=== PATIENT | male | born 1980 | race Caucasian/White ===

== ENCOUNTER 2018-02-28 16:51 | Emergency (ER) | payer SELFPAY ==
[2018-02-28 16:53] VITALS: BP 129/69; PULSE 110; RESP 16; TEMP 36.7; O2SAT 97; BMI 32.6
--- NOTE | 2018-02-28 17:06 | RAD_ITS ---
STUDY: X-RAY CHEST REASON FOR EXAM: Male, 38 years old. Irregular heartbeat. TECHNIQUE: Single AP portable view of the chest. COMPARISON: None. FINDINGS: The lungs are clear and expanded. There is no demonstrated pleural abnormality. Normal size heart. Normal mediastinum and clara. Normal visualized pulmonary arteries. Normal visualized aortic arch and descending thoracic aorta. Normal visualized thoracic spine. Normal visualized ribs, clavicles, and shoulders. There is no demonstrated abnormality of the visualized soft tissue structures of the upper abdomen. RAD/Chest 1 View (Portable) IMPRESSION: Normal x-ray examination of the chest. Electronically Signed: Julito Bernardo MD at 17:21 EDT , Service support ,
--- NOTE | 2018-02-28 17:06 | EKG12_ITS ---
Test Reason : IRREGULAR RHYTHM Blood Pressure : / mmHG Vent. Rate : 086 BPM Atrial Rate : 086 BPM P-R Int : 126 ms QRS Dur : 092 ms QT Int : 354 ms P-R-T Axes : 069 069 031 degrees QTc Int : 423 ms Sinus rhythm with Premature atrial complexes Otherwise normal ECG Confirmed by ZENAIDA ANDREW, MANNY ([id number]), editor & co founder LENORE ELDER ([id number]) on 03/03/2018 2:45:27 PM Referred By: FRANCISCO J Confirmed By:MANNY ESTEVEZ MD
[2018-02-28] MEDS: Aspirin 81 MG TAB.CHEW 324 MG PO (17:18)
[2018-02-28 17:45] LABS: Absolute Lymphocyte Count 1.43 X10^3/ul (0.83-4.51); Basophil# 0.02 X10^3/uL; Basophil% 0.2 % (0-1); Eosinophil# 0.06 X10^3/uL; Eosinophils% 0.7 % (0-5); Hematocrit 39.2 % (40-54); Hemoglobin 13.3 g/dl (13.0-16.5); Lymphocyte # 1.43 X10^3/ul (4.0); Lymphocyte % 16.8 % (19-41); Mean Corp Hgb Conc 33.9 g/gl (32-36); Mean Corpuscular Hgb 31.6 pg (27.0-32.0); Mean Corpuscular Volume 93.1 fL (80-94); Mean Platelet Vol. 8.8 fl (6.2-12.0); Monocyte# 0.93 X10^3/uL; Neutrophil # 6.04 X10^3/uL (2.7-7.7); Neutrophil % 71.2 % (47-70); Platelet Count 204 K/mm3 (150-450); RBC Distribution Width CV 13.1 % (11.6-14.6); RBC Distribution Width SD 44.8 fl (35.1-43.9); Red Blood Count 4.21 M/mm3 (4.6-6.2); White Blood Count 8.5 K/mm3 (4.4-11.0)
[2018-02-28 17:53] LABS: POSITIVE COUNT NO; POSITIVE DIFFERENTIAL NO; POSITIVE MORPHOLOGY NO
[2018-02-28 18:04] LABS: Anion Gap 5 (5-15); BUN 13 mg/dL (7-18); BUN/Creat Ratio 13.8 RATIO (10-20); Calcium,Total 8.9 mg/dL (8.5-10.1); Chloride 104 mmol/L (98-107); Creatinine, Serum 0.94 mg/dL (0.70-1.30); EST Glomerular Filtration Rate 94 mL/min (>60); Est Glom Filt Rate - Afr Amer 114 mL/min (>60); Estimated Creatinine Clearance 104.46 ml/min; Glucose 107 mg/dL (74-106); Potassium 3.4 mmol/L (3.5-5.1); Sodium Level 138 mmol/L (136-145)
--- NOTE | 2018-02-28 18:11 | ED.VISSUMM ---
- ER Visit Summary Date of Service: 02/28/18 Chief Complaint: Irregular heartbeat History of Present Illness: The patient is a 38 M who has been complaining of URI like symptoms over the past couple of days. [facility] noticed an irregular heart rate so they sent him here. He has had sinus congestion, dizziness and chills. He has also had a slight cough. He denies any fevers. He does not feel palpitations. He is never had anything like this before. Denies any chest pain Physical Examination: Vital signs reviewed. HEENT exam unremarkable. Heart is irregular without murmurs. Lungs are clear to auscultation. Abdomen is soft and nontender. Extremities reveal no edema. Skin exam normal. Neurologic exam normal. Test Results: EKG is sinus rhythm with multiple PACs. Chest x-ray normal. Labs unremarkable Emergency Department Course and Treatment: Patient has a viral URI and will be treated with Mucinex as well as Flonase. This irregular heartbeat is caused by PACs. He does not feel them. He is going to mention this to his primary doctor and I am not going to start him on any medications for this Treatment Plan: [] Disposition: Discharge Impression: URI, premature atrial contractions This note was generated with Pipeline dictation software. It may contain incorrect words, spelling, and punctuation that were not noted in review of the chart prior to signing ED Disposition - Plan for ED Patient: Chief Complaint: Cold Sx Referrals: Yassine Sims DO [Primary Care Provider] -
--- NOTE | 2018-02-28 18:14 | DCINST.ED_ITS ---
ED Disposition - Plan for ED Patient: Disposition: Home or Assisted Living Chief Complaint: Cold Sx Instructions: ED Upper Resp Infec No Abx Tx Prescriptions: Fluticasone 0.05% [Flonase Nasal [place]] 1 spray NASAL BID #1 bottle Guaifenesin [Mucinex] 600 mg PO BID #14 [id number] Referrals: Yassine Sims DO [Primary Care Provider] -
[2018-02-28 18:35] VITALS: BP 113/71; PULSE 75; RESP 21; O2SAT 96
== END 2018-02-28 18:36 | disposition home or self-care (01) ==
PROVIDERS: Emergency Provider Emergency Medicine; Family Provider Family Medicine; PCP Family Medicine
DX: I49.1 Atrial premature depolarization (principal); J06.9 Acute upper respiratory infection, unspecified; Z72.0 Tobacco use
CPT/HCPCS: 71045; 80048; 84484; 85025; 93005; 99284

== ENCOUNTER 2024-11-25 16:03 | Emergency (ER) | payer OTHER, SELFPAY ==
[2024-11-25 16:04] VITALS: BP 126/91; PULSE 93; RESP 16; TEMP 36.9; O2SAT 99; BMI 30.9
--- NOTE | 2024-11-25 17:55 | RAD_ITS ---
PROCEDURE: CHEST 1 VIEW (PORTABLE) REASON FOR EXAM: 44-year-old male, cough. TECHNIQUE: Frontal view of the chest. COMPARISON: Chest radiograph 02/28/2018. FINDINGS: The heart size is normal. The lungs are clear. No focal consolidation, pleural effusion or pneumothorax. The bones are unremarkable. RAD/Chest 1 View (Portable) IMPRESSION: NEGATIVE CHEST. Reading Location: [id number]
[2024-11-25 17:56] LABS: Absolute Lymphocyte Count 0.98 X10^3/uL (0.83-4.51); Absolute Neutrophil Count 5.5 X10^3/uL (2.0-7.7); Basophil# 0.03 X10^3/uL; Basophil% 0.4 % (0-1); Hemoglobin 15.7 g/dL (13.0-16.5); Lymphocyte # 0.98 X10^3/ul (0.83-4.51); Lymphocyte % 13.1 % (19-41); Mean Corp Hgb Conc 34.9 g/dL (32-36); Mean Corpuscular Hgb 33.1 pg (27.0-32.0); Mean Corpuscular Volume 94.7 fL (80-94); Mean Platelet Vol. 8.4 fl (6.2-12.0); Monocyte# 0.93 X10^3/uL; Monocyte% 12.4 % (0-10); NRBC Flagged by Analyzer 0 % (0-5); Neutrophil # 5.53 X10^3/uL (2.7-7.7); Neutrophil % 73.7 % (47-70); Platelet Count 181 K/mm3 (150-450); RBC Distribution Width SD 45.1 fl (35.1-43.9); Red Blood Count 4.75 M/mm3 (4.6-6.2); White Blood Count 7.5 K/mm3 (4.4-11.0)
[2024-11-25 18:12] LABS: Anion Gap 9 (5-15); BUN 24 mg/dL (7-18); BUN/Creat Ratio 20.5 RATIO (10-20); Calcium,Total 9.4 mg/dL (8.5-10.1); Chloride 100 mmol/L (98-107); Creatinine, Serum 1.17 mg/dL (0.70-1.30); EST Glomerular Filtration Rate 71 mL/min (>60); Est Glom Filt Rate - Afr Amer 86 mL/min (>60); Estimated Creatinine Clearance 98.11 ml/min; Glucose 103 mg/dL (74-106); Potassium 3.9 mmol/L (3.5-5.1); Sodium Level 133 mmol/L (136-145)
--- NOTE | 2024-11-25 18:49 | EX.ED.DYSGE1 ---
HPI History of Present Illness Chief Complaint: General Illness Detail of Chief Complaint: Systemic viral symptoms Informant: patient Onset/Context/Timing Onset: Days (Onset 2 days ago) Context: Sudden Onset Timing: Continuous and Waxes and wanes Quality: Achy all over Location: Generalized with respiratory and GI symptoms Current Severity: Moderate Maximum Severity: Severe Worsened by: Nothing Relieved by: Nothing Associated Symptoms Associated Symptoms: Detailed HPI narrative Narrative Narrative: Patient is a 44-year-old male he has no significant past medical history. He presents with viral type symptoms started 2 days ago. He endorses rhinorrhea, congestion, postnasal drainage sore throat. He has a cough that is nonproductive. He complains of abdominal pain with nausea and diarrhea. He denies hematochezia or black stool. He denies mucus in his diarrhea. He has not been on antibiotic in the past month. He does not drink well water and his had no ill contacts to his knowledge. He has not taken anything for the pain. He states he has not felt this bad in years. He does endorse mild headache. [place] photophobia, neck pain or neck stiffness. He denies ear pain. He denies chest pain. He denies shortness of breath. He denies wheezing. He is a smoker. He denies dysuria, frequency, urgency or hematuria. He endorses decreased urine output. He denies any skin lesions or joint swelling. Recent Illness/Hospitalization: No PFSH [facility] Medical History Cough Home Medications ?Medication ?Instructions ?Recorded ?Last Taken ?Type fluticasone propionate 50 1 spray NASAL BID ##1 02/28/18 Unknown Rx mcg/actuation nasal spray,suspension guaifenesin 600 mg tablet, 600 mg PO BID ##14 02/28/18 Unknown Rx extended release 12 hr hydrocodone-homatropine 5 mg-1.5 5 ml PO Q6H PRN cough 3 days #60 mL 11/26/24 Unknown Rx mg/5 mL (5 mL) oral syrup (Hycodan) Allergy/AdvReac Type Severity Reaction Status Date / Time No Known Allergies Allergy Verified 11/25/24 16:05 Social History Smoking Status: Current every day smoker tobacco type: cigarettes ROS ROS ED Constitutional Constitutional ED: Reports chills, fever(s), subjective and sweats; Denies weight loss Eyes Eyes: Denies blurry vision, change in vision or diplopia ENT ENT ED: Denies ear pain, rhinorrhea or sore throat Cardiovascular Cardiovascular: Reports chest pain; Denies orthopnea, palpitations, paroxysmal nocturnal dyspnea or racing heartbeat Respiratory/Chest Respiratory/Chest: Reports cough and dyspnea; Denies dyspnea on exertion, orthopnea, paroxysmal nocturnal dyspnea or sputum Gastrointestinal Gastrointestinal: Reports abdominal pain, diarrhea and nausea; Denies melena or vomiting Genitourinary Genitourinary ED: Reports other Details: Decreased urine output ; Denies dysuria, hematuria or urinary frequency Musculoskeletal Musculoskeletal: Denies arthralgias or myalgias Integumentary Denies rash Neurologic Neurologic: Reports headache(s) and weakness; Denies paresthesias Endocrine Endocrinology: Denies cold intolerance or heat intolerance Hematologic/Lymphatic Hematologic/Lymphatic: Reports systems reviewed and no addt'l complaints, except as documented EXAM Physical Exam Const Vital Signs: 11/25/24 16:04 11/25/24 18:50 11/25/24 20:00 Temperature 98.4 F Temperature Source Oral Pulse Rate 93 Respiratory Rate 16 18 Respiratory Effort Normal Non-Labored Respiratory Pattern Normal Blood Pressure 126/91 H Blood Pressure Mean 102 Pulse Ox 99 Oxygen Delivery Method Room Air 11/25/24 22:00 Temperature Temperature Source Pulse Rate 90 Respiratory Rate 18 Respiratory Effort Respiratory Pattern Blood Pressure 118/90 H Blood Pressure Mean 99 Pulse Ox 98 Oxygen Delivery Method Room Air Positive well nourished and well developed General Appearance ED: well developed; Negative for cyanotic, diaphoretic, NAD or pallor HEENT Reports dry mucous membranes HEENT Narrative: Head is atraumatic normocephalic. Ears normal. Nares patent. Posterior pharynx is normal. Mouth ED: Yes dry mucous membranes Mouth: dry mucous membranes Eyes PERRL and EOMs intact bilaterally General Eye ED: Negative for pale conjunctiva or scleral icterus Neck no lymphadenopathy, supple and no JVD Chest Wall inspection of chest normal and palpation of chest normal Resp normal respiratory effort and clear to auscultation bilaterally Cardio regular rate, regular rhythm, S1 normal heart sound, S2 normal heart sound and no murmurs GI normal to inspection, nondistended, normoactive bowel sounds, non-distended and no masses; Negative for non-tender or hepatosplenomegaly Palpation: soft and tender epigastric; Negative for guarding, splenomegaly or rebound tenderness present Back/Spine no CVA tenderness Extremity normal to inspection General Extremety ED: Negative for edema or tenderness General Extremity: Negative for edema Neuro oriented x3 and CN's II-XII intact bilaterally Sensorium / Orientation: alert Psych mental status grossly normal Skin no rashes or lesions noted, no wounds and skin turgor normal General Skin Exam: Negative for jaundice or pallor MDM MDM MDM Narrative Medical decision making narrative: Patient with systemic viral symptoms. Will obtain chest x-ray to rule out pneumonia. Rapid antigen for COVID, influenza and RSV, CBC to assess H&H and white count with differential, electrolyte panel to assess renal function and CO2 anion gap. Since patient clinically appears dehydrated 1 L normal saline was ordered. He was administered Zofran for his nausea Imodium for his diarrhea and Bentyl for his cramping pain. Will reassess in 30 to 60 minutes Lab Data Attestation: I reviewed the patient's lab results. Lab results narrative: CBC is unremarkable. Basic metabolic panel is unremarkable Labs: Laboratory Results - last 24 hr 11/25/24 17:47 WBC 7.5 RBC 4.75 Hgb 15.7 Hct 45.0 MCV 94.7 H MCH 33.1 H MCHC 34.9 RDW Std Deviation 45.1 H RDW Coeff of Vitor 13.0 Plt Count 181 MPV 8.4 Immature Gran % (Auto) 0.400 Neut % (Auto) 73.7 H Lymph % (Auto) 13.1 L Harlan % (Auto) 12.4 H Eos % (Auto) 0.0 Baso % (Auto) 0.4 Absolute Neuts (auto) 5.5 Absolute Lymphs (auto) 0.98 Nucleated RBC % 0 Sodium 133 L Potassium 3.9 Chloride 100 Carbon Dioxide 24.0 Anion Gap 9 BUN 24 H Creatinine 1.17 Estim Creat Clear Calc 98.11 Est GFR (MDRD) Af Amer 86 Est GFR (MDRD) Non-Af 71 BUN/Creatinine Ratio 20.5 H Glucose 103 Calcium 9.4 Radiography Chest X-Ray - ED: 1 View, Read by ED Physician (Independently interpreted by me at 1849), Normal, Heart, Lungs, Mediastinum, Bony Structures and No Acute Disease Diagnostic Testing: Clinical Impression(s) from Imaging Studies Chest X-Ray 11/25/24 17:55 IMPRESSION: NEGATIVE CHEST. Reading Location: [facility] Treatment and Re-Evaluation :: Patient was reassessed at 2046. He has no urge to urinate after infusion of 1 L. Second liter of normal saline was ordered. Comments:: Patient had no urge to urinate after second liter of normal saline. 1/3 L was ordered. I was informed at 7 that patient has urinated. Will discharge to home. Discharge Plan Triage Chief Complaint: General Illness ED Provider: Delio Foster Dx/Rx/DC Orders Clinical Impression: Systemic viral illness, Severe dehydration Instructions: ED Dehydration (Adult), ED Viral Syndrome (Adult) Prescriptions: New hydrocodone-homatropine [Hycodan] 5-1.5 mg/5 mL (5 mL) syrup 5 ml PO Q6H PRN (Reason: cough) 3 Days Qty: 60 0RF No Action guaifenesin 600 MG tablet extended release 12hr 600 mg PO BID Qty: 14 0RF fluticasone propionate 1 SPRAY spray,suspension 1 spray NASAL BID Qty: 1 0RF Primary Care Provider: Care Physician,No Primary Referrals: Isaías Canseco MD [Med Staff - Active Staff] - 10-14 Days if not better NOT,DEFINED [Non-Staff] - Activity Restrictions/Additional Instructions: If you do not have a physician you can follow-up with Dr. Isaías Canseco if you are not better after 10 days. You may be ill for another 10 to 14 days. Print Language: Belgian Disposition Disposition: Home, Self Care
[2024-11-25] MEDS: 0.9% Normal Saline (1000mL) 1,000 ML 999 ML IV (19:19)
[2024-11-25] MEDS: Ondansetron 4 MG/2 ML Vial IV (19:20)
[2024-11-25] MEDS: Loperamide 2 MG Capsule 4 MG PO (19:20)
[2024-11-25] MEDS: Dicyclomine 20 MG/2 ML Vial IM (19:21)
[2024-11-25 20:00] VITALS: RESP 18
[2024-11-25] MEDS: 0.9% Normal Saline (1000mL) 1,000 ML 1000 ML IV ×2 (21:33→23:06)
--- NOTE | 2024-11-25 21:36 | CM.ED ---
Social Work Reason for visit: no PCP Patient verified that he does not have a primary care physician. [facility] provider list given. No further needs identified at this time. Soraida Huddleston, FLEXIBLE SHAFT WINDER, ACCOUNT SPECIALIST
[2024-11-25 22:00] VITALS: BP 118/90; PULSE 90; RESP 18; O2SAT 98
[2024-11-26 00:41] VITALS: BP 132/60; PULSE 88; RESP 18; TEMP 37.2; O2SAT 95
== END 2024-11-26 00:43 | disposition home or self-care (01) ==
PROVIDERS: Emergency Provider Emergency Medicine; Visit Provider Emergency Medicine
DX: B34.9 Viral infection, unspecified (principal); E86.0 Dehydration; R19.7 Diarrhea, unspecified; R11.0 Nausea; R10.9 Unspecified abdominal pain; R05.9 Cough, unspecified; R06.00 Dyspnea, unspecified; R09.81 Nasal congestion; J02.9 Acute pharyngitis, unspecified; F17.210 Nicotine dependence, cigarettes, uncomplicated
CPT/HCPCS: 71045; 80048; 85025; 87631; 94760; 96361; 96372; 96374; 99283; A4216; J2405